=== PATIENT | female | born 1940 | race Caucasian/White ===

== ENCOUNTER 2019-03-04 21:46 | Inpatient (IN) | payer MEDICARE, BC ==
[2019-03-04] MEDS ORDERED: JANUMET 50-1,01 EAC1 (21:56)
[2019-03-04] MEDS ORDERED: [UNRECOGNIZED DRUG - OTHER] (21:58)
[2019-03-04 22:38] LABS: BASOPHILS 0.1 % (0-2); EOSINOPHILS 0 % (0-7); HEMATOCRIT 46.6 % (36.0-48.0); HEMOGLOBIN 16.2 g/dL (12-16); IMMATURE GRANULOCYTES 0.5 % (0-5); LYMPHOCYTES 6.7 % (15-50); MCH 29.9 pg (26.0-34.0); MCHC 34.8 g/dL (31.0-37.0); MEAN PLATELET VOLUME 10.4 fL (7.4-10.4); MONOCYTES 13.1 % (2-11); NEUTROPHILS 79.6 % (40-80); PLATELET COUNT 248 10x3/uL (130-400); RBC 5.42 10x6/uL (4.00-5.40); RDW 13.3 % (11.5-14.5); WBC 11.8 10x3/uL (4.8-10.8)
[2019-03-04 22:53] LABS: ALBUMIN 2.9 g/dL (3.4-5.0); ANION GAP 24.8 mmol/L (8-16); BILIRUBIN - TOTAL 0.45 mg/dL (0.2-1.3); CALCIUM 10.1 mg/dL (8.5-10.1); CREATININE - SERUM 1.2 mg/dL (0.6-1.3); POTASSIUM - SERUM 3.8 mmol/L (3.5-5.1); PROTEIN - SERUM 7.1 g/dL (6.4-8.2)
[2019-03-04 23:41] LABS: CKMB 137.1 U/L (0.0-3.6)
[2019-03-04 23:45] LABS: CREATINE KINASE 1430 UL (21-215)
[2019-03-04 23:48] LABS: TROPONIN-I 107.683 ng/mL (0.000-0.060)
--- NOTE | 2019-03-05 01:25 | NUR ---
PT WAS ADMITTED TO ROOM 2113 FROM ER AT 0050. AT THE SAME TIME, LAB CALLED WITH CRITICAL HIGH TROPONIN OF 107. JOSLYN FROM ER RELAYED ELEVATED TROPONIN LEVEL TO ER/DR SOSA AND PAGED DR FAUSTIN. NO NEW ORDERS PER [facility] OR [facility]. PT IS ACCOMPANIED BY FAMILY X 5. SHE IS ALERT BUT NONVERBAL. SHE IS MOVING HER ARMS, PICKING AT THINGS IN THE AIR. FLAT AFFECT. FAMILY STATES SHE NORMALLY LIVES ALONE, WITH FAMILY THAT CHECKS HER TWICE DAILY AND TODAY THEY FOUND HER ON THE FLOOR AT 1600, NO LONGER SPEAKING. TELEMETRY STARTED SHOWING ST 100-120. PT WITH ANXIETY. CALL TO DR FAUSTIN. REVIEWED CURRENT TROPONIN LEVEL OF 107 AND REQUESTED MED FOR ANXIETY/AGITATION. ALSO CLARIFIED THAT NEXT TROPONIN LEVEL IS SET FOR 0500. DR FAUSTIN INSTRUCTED TO MOVE NEXT TROPONIN LEVEL TO 0700. ADMINISTERED 1MG SIVP OF ATIVAN. GRANDDAUGHTER AT BEDSIDE.
[2019-03-05 02:04] VITALS: BP 135/76; BMI 23.2
[2019-03-05 04:25] VITALS: BP 139/72
--- NOTE | 2019-03-05 07:30 | NUR ---
RECEIVED PT IN BED RESPONDS TO PAINFUL STIMULI SNORING RESP UNLABORED O2 ON 2 LPM NC TELEMETRY SR RATE 137 WILL CONTINUE TO MONITOR GRANDDAUGHTER AT BEDSIDE
[2019-03-05 08:04] LABS: CKMB 98.6 U/L (0.0-3.6)
[2019-03-05 08:05] LABS: CREATINE KINASE 1185 UL (21-215)
[2019-03-05 08:53] VITALS: BP 116/68
--- NOTE | 2019-03-05 10:07 | NUR ---
PT UNABLE TO TAKE PO MEDS NEW ORDERS RECEIVED TO GIVEN IV MEDS WILL CONTINUE TO MONITOR
[2019-03-05 12:07] VITALS: BMI 23.1
[2019-03-05 13:11] VITALS: BP 131/71
[2019-03-05 13:15] LABS: CKMB 51.9 U/L (0.0-3.6); CREATINE KINASE 801 UL (21-215)
[2019-03-05 13:16] LABS: TROPONIN-I 50.686 ng/mL (0.000-0.060)
[2019-03-05 16:45] VITALS: BP 142/81
--- NOTE | 2019-03-05 19:11 | NUR ---
RECIEVED LAYING IN BED WITH HOB ELEVATED. O2 @ 2 LITERS PER N/C. RESP EVEN AND UNLABORED. UNABLE TO AROUSE USING STERNAL RUB. GRAND DAUGHTER AT BEDSIDE AND STAES " SHE'S BEEN LIKE THAT ALL DAY". NO S/S OF DISTRESS OBSERVED. IV TO RIGHT FA SL AND IV TO LEFT HAND SL..
--- NOTE | 2019-03-05 19:42 | NUR ---
CONTINUES TO BE UNRESPONSIVE. HR 145. LOPRRESSOR GIVEN AND HR 74 AT THIS TIME.
[2019-03-05 20:00] VITALS: BP 155/87
[2019-03-06] VITALS (19 sets, daily range): BP systolic 68–128; BP diastolic 50–90
[2019-03-06 04:09] LABS: BASOPHILS 0.1 % (0-2); EOSINOPHILS 0 % (0-7); HEMATOCRIT 48.9 % (36.0-48.0); HEMOGLOBIN 16.7 g/dL (12-16); IMMATURE GRANULOCYTES 0.3 % (0-5); LYMPHOCYTES 9.8 % (15-50); MCH 30.1 pg (26.0-34.0); MCHC 34.2 g/dL (31.0-37.0); MEAN PLATELET VOLUME 10.6 fL (7.4-10.4); MONOCYTES 12.8 % (2-11); RBC 5.54 10x6/uL (4.00-5.40); RDW 13.7 % (11.5-14.5); WBC 14.3 10x3/uL (4.8-10.8)
[2019-03-06 04:12] LABS: MCV 88.3 fL (80.0-100.0); PLATELET COUNT 347 10x3/uL (130-400)
[2019-03-06 04:23] LABS: CALCIUM 10.5 mg/dL (8.5-10.1)
[2019-03-06 04:25] LABS: ANION GAP 20.9 mmol/L (8-16); CARBON DIOXIDE 19.8 mmol/L (21.0-32.0); CREATININE - SERUM 1.7 mg/dL (0.6-1.3); POTASSIUM - SERUM 4.7 mmol/L (3.5-5.1)
[2019-03-06 05:06] LABS: APPEARANCE CLOUDY (CLEAR); BILIRUBIN NEGATIVE (NEGATIVE); COLOR YELLOW (YELLOW); GLUCOSE NEGATIVE (NEGATIVE); KETONE SMALL mg/dL (NEGATIVE); NITRITE NEGATIVE (NEGATIVE); PROTEIN 1+ mg/dL (NEGATIVE); SPECIFIC GRAVITY 1.015 (1.005-1.020); UROBILINOGEN NORMAL (NORMAL)
[2019-03-06 05:07] LABS: BACTERIA MANY /hpf (NONE SEEN); EPITHELIAL CELLS NSEEN /hpf (0-5); WHITE CELLS - URINE >50 /hpf (0-5)
--- NOTE | 2019-03-06 05:58 | NUR ---
SPOKE WITH DR CORDERO, ORDERS RECIEVED.
[2019-03-06 06:05] LABS: CKMB 9.2 U/L (0.0-3.6)
[2019-03-06 06:07] LABS: CREATINE KINASE 344 UL (21-215); TROPONIN-I 27.527 ng/mL (0.000-0.060)
--- NOTE | 2019-03-06 06:17 | NUR ---
0350 RAPID, SEE REPORT. 0406 DR LO PAGED. 0427 DR LO PAGED. 3755 DR LO CALLED BACK, ORDERS RECIEVED. 0530 PT ARRIVED TO ICU. LOWER EXTREMITY MOTTLING NOTED. LUNGS WITH CRACKLES/RHONCHI THROUGH, AND LOWER LOBES DVERY DIMINISHED. RR VERY SHALLOW. ON 6L HIGH FLOW NC. BP 124/85, HR 139, RR 44, SPO2 96%, TEMP 99. [address] CORDERO, NOTIFIED OF CONSULT AND GAVE PATIENT STATUS UPDATE. ORDERS RECIEVED.
--- NOTE | 2019-03-06 06:33 | NUR ---
PER DR GIL OVIEDO HIGH ORDER BILATERAL LOWER EXTREMITY DOPPLER STUDIES.
--- NOTE | 2019-03-06 07:46 | NUR ---
NURSE AT BEDSIDE, SEE FLOW SHEET FOR ASSESSMENT, RT AT BEDSIDE.
--- NOTE | 2019-03-06 08:12 | NUR ---
PAGED FOR FURTHER INSTRUCTIONS R/T ?BIPAP ALSO ?DNR.
--- NOTE | 2019-03-06 08:15 | NUR ---
NURSE SPOKE WITH ROYER, SHE STATES THE FAMILY DOES NOT WISH TO PREFORM ANY HEROIC MEASURES, BUT TO CONTINUE TREATMENT OF CURRENT CONDITIONS. DR. SEXTON.
--- NOTE | 2019-03-06 09:37 | NUR ---
HOWARD 3, CALLED [facility], THEY REFUSE TO TAKE CALL DUE TO FACT PATIENT NOT INTUBATED, OR .
--- NOTE | 2019-03-06 19:00 | NUR ---
REPORT RECEIVED, CARE ASSUMED. PT IS LAYING IN BED ON BIPAP AT THIS TIME. UNRESPONSIVE TO STIMULI. PT REPOSITIONED FOR COMFORT. NO SIGNS OF ACUTE DISTRESS NOTED AT THIS TIME. WILL CONTINUE TO MONITOR.
--- NOTE | 2019-03-06 21:00 | NUR ---
PT IS RESTING IN BED ON THE BIPAP AT THIS TIME. STILL UNRESPONSIVE AT THIS TIME. FAMILY IS AT BEDSIDE. NO SIGNS OF ACUTE DISTRESS NOTED. WILL CONTINUE TO MONITOR.
--- NOTE | 2019-03-06 23:00 | NUR ---
REASSESSMENT COMPLETED, SEE FLOWSHEET FOR DETAILS. PT REPOSITIONED FOR COMFORT. ORAL CARE PERFORMED. PT IS RESTING IN BED WITH BIPAP ON, NO RESPONDING TO STIMULI. NO SIGNS OF ACUTE DISTRESS NOTED AT THIS TIME. WILL CONTINUE TO MONITOR.
[2019-03-07] VITALS (24 sets, daily range): BP systolic 84–124; BP diastolic 55–82
--- NOTE | 2019-03-07 01:00 | NUR ---
PT IS RESTING IN BED ON THE BIPAP, STILL UNRESPONSIVE AT THIS TIME. NO ACUTE CHANGES NOTED. NO SIGNS OF ACUTE DISTRESS. WILL CONTINUE TO MONITOR.
--- NOTE | 2019-03-07 03:00 | NUR ---
REASSESSMENT COMPLETED, SEE FLOWSHEET FOR DETAILS. PT IS LAYING IN BED ON THE BIPAP AT THIS TIME, STILL UNRESPONSIVE. NO CHANGES NOTED AT THIS TIME. NO SIGNS OF ACUTE DISTRESS. WILL CONTINUE TO MONITOR.
[2019-03-07 03:42] LABS: BASOPHILS 0.1 % (0-2); EOSINOPHILS 0 % (0-7); HEMATOCRIT 44.8 % (36.0-48.0); HEMOGLOBIN 14.9 g/dL (12-16); LYMPHOCYTES 11.1 % (15-50); MCH 30.1 pg (26.0-34.0); MCHC 33.3 g/dL (31.0-37.0); MCV 90.5 fL (80.0-100.0); MEAN PLATELET VOLUME 11.2 fL (7.4-10.4); MONOCYTES 8.1 % (2-11); NEUTROPHILS 79.7 % (40-80); PLATELET COUNT 289 10x3/uL (130-400); RBC 4.95 10x6/uL (4.00-5.40); RDW 14.2 % (11.5-14.5); WBC 13.7 10x3/uL (4.8-10.8)
[2019-03-07 03:53] LABS: ANION GAP 16.5 mmol/L (8-16); BILIRUBIN - TOTAL 0.51 mg/dL (0.2-1.3); CALCIUM 9.5 mg/dL (8.5-10.1); CARBON DIOXIDE 23.3 mmol/L (21.0-32.0); MAGNESIUM - SERUM 2.2 mg/dL (1.8-2.4); PHOSPHOROUS 4.4 mg/dL (2.5-4.9); POTASSIUM - SERUM 4.8 mmol/L (3.5-5.1); PROTEIN - SERUM 6.6 g/dL (6.4-8.2)
[2019-03-07 03:54] LABS: CREATININE - SERUM 2.7 mg/dL (0.6-1.3)
--- NOTE | 2019-03-07 04:11 | NUR ---
CRITICAL LAB RESULT RECEIVED, CALLED DR GRAHAM REGARDING CRITICAL GLUCOSE LEVEL. ORDERS RECEIVED.
--- NOTE | 2019-03-07 05:15 | NUR ---
RECHECKED GLUCOSE LEVEL, STILL CRITICAL RESULT. CALLED DR GRAHAM, RESULTS RECEIVED.
--- NOTE | 2019-03-07 07:30 | NUR ---
REPORT RECIEVED, SHIFT ASSESSMENT COMPLETE, PT IS UNRESPONSIVE ON BIPAP, ALL PPP, VSS, WILL CON'T TO MONITOR
--- NOTE | 2019-03-07 08:50 | NUR ---
Nutrition follow-up: Pt continues to be unresponsive NPO BIPAP Labs reviewed; glucose > 350 mg/dl Wt: 121# RDN will continue to monitor patients progress.
--- NOTE | 2019-03-07 09:30 | NUR ---
FAMILY AT BEDSIDE, UPDATE GIVEN, WILL CON'T TO MONITOR
--- NOTE | 2019-03-07 10:07 | CN ---
PATIENT NAME:RALPH LANDAVERDE MEDICAL RECORD: [id number] : 42 LOCATION:[id number] ADMIT DATE: 03/04/19 ACCOUNT: [id number] CONSULTING PHYSICIAN: VIRY FAUSTIN MD REFERRING PHYSICIAN: KEVAN ESCOTO MD DATE OF CONSULTATION: 03/04/2019 HISTORY OF PRESENT ILLNESS: A 78-year-old female with no known history of coronary artery disease. History is obtained from family member, has a history of diabetes mellitus, history of dementia, has been having good days over the past week or so, last seen by family Thursday. Thursday was markedly disoriented, confused, was taken to the [facility] ER, was found to be in DKA as well as hypernatremic. Also noted to have elevated troponin consistent with type 1 versus type 2, UT. We are asked to see her concerning her cardiovascular status. PAST MEDICAL HISTORY: 1. Dementia. 2. Diabetes mellitus. ALLERGIES: None known. MEDICATIONS: At home include Janumet 50 mg/1 gram b.i.d., unknown antihypertensive. SOCIAL HISTORY: With dementia, requires assistance with assisted living. She is a nonsmoker. Appears to have good family support. REVIEW OF SYSTEMS: Unobtainable. PHYSICAL EXAMINATION: GENERAL: Elderly female in no acute distress. VITAL SIGNS: Blood pressure 113/72, pulse 102. HEENT: Normocephalic, atraumatic. NECK: No bruits are noted. HEART: Regular, II/ systolic ejection murmur. Mildly tachycardic. LUNGS: Fair air excursion. ABDOMEN: Soft, nontender. EXTREMITIES: Pulses 1+ with no edema. DIAGNOSTIC DATA: ECG shows nonspecific ST-T changes. IMPRESSION: Type 1 versus type 2 versus combination of Non-ST elevation myocardial infarction. Given marked electrolyte imbalances, etc., we will just begin medical management, angiography at a later date. X-ray has been ordered and again antiplatelets as well as beta blockade. TRANSINT:[id number] Voice Confirmation ID: [id number] DOCUMENT ID: [id number] CONSULT REPORT [id number] RALPH LANDAVERDE VIRY FAUSTIN MD at 1007 CC: [id number] DICTATION DATE: 03/05/19 0827 HOT MOLDER: 03/05/19 1257 ADM IN [facility] [address] [id number]
--- NOTE | 2019-03-07 10:07 | EC ---
PATIENT:RALPH LANDAVERDE DATE OF SERVICE: 03/04/19 SEX: F MEDICAL RECORD: [id number] DATE OF : 42 LOCATION:[facility] AGE OF PATIENT: 78 ADMISSION DATE: 03/04/19 REFERRING PHYSICIAN: INTERPRETING PHYSICIAN: VIRY FAUSTIN MD ECHOCARDIOGRAM REPORT ECHO CHARGES 4 ECHO COMPLETE Date: 03/05/19 CLINICAL DIAGNOSIS: NONSTE WA ECHOCARDIOGRAPHIC MEASUREMENTS (adult normal given) AC root (d.<3.7cm) 4.0 cm LV Septum d (<1.2 cm> 1.1 cm Valve Excursion 1.7 cm LV Septum (systole) 1.3 cm Left Atria (s.<4.0cm> 2.7 cm LVPW d(<1.2cm) 1.4 cm RV (d.<2.3cm) 2.8 cm LVPW (sytole) 1.5 cm LV diastole(<5.6CM) 5.5 cm MV E-F(>70mm/sec) cm LV systole 4.7 cm LVOT Diameter 1.9 cm MV exc.(>10mm) 1.3 cm Est.ejection fraction (50-75%) % DOPPLER: LVIT cm/sec A cm/sec E cm/sec LA cm/sec RVSP 20 mmHg LVOT 115 cm/sec AOP1/2T 380 m/s Asc. Ao 144 cm/sec RVOT 87 cm/sec RA cm/sec PA 135 cm/sec AV Gradient Peak 8.29 mmHg AV Mean 4.94 mmHg AV Area 2.7 cm MV Gradient Peak 6.10 mmHg MV Mean 2.17 mmHg MV Area cm COMMENTS: Record Center Coordinator: 2 JEREMIAS MUÑOZ Extruder Operator Vertical: 3 Dr. Nagy TAPE# PACS Pericardial Effusion N DATE OF SERVICE: Adequate 2-D echo, color-flow and spectral Doppler, and M-mode. LVH is present. LV internal dimensions are normal. LV is globally hypokinetic with reduced EF. Estimated EF is 30% to 35%. There is an echo dense structure noted on the LV septum. This density could be consistent with either LV thrombus or possibly even LV myxoma. Aortic valve is tricuspid. No evidence of stenosis by Doppler interrogation. Left atrium is normal at 3.7 cm. Mitral valve shows no prolapse. Trace MR. Right-sided chambers are grossly normal. ECHOCARDIOGRAM REPORT [id number] SAIMARALPH Wu Serna TR. TRANSINT:[id number] Voice Confirmation ID: [id number] DOCUMENT ID: [id number] VIRY FAUSTIN MD at 1007 CC: [id number] DICTATION DATE: 03/06/1949 FINISHING MANAGER: 03/06/19 1637 ADM IN [place] [id number] [place] [address]
--- NOTE | 2019-03-07 11:30 | NUR ---
REASSESSMENT COMPLETE, NO CHANGES NOTED, REPOSITIONED FOR COMFORT,
--- NOTE | 2019-03-07 12:30 | NUR ---
BIPAP REMOVED AT THIS TIME, PT NOW ON 5L HF NC, O2 SAT IS 97%
--- NOTE | 2019-03-07 13:05 | NUR ---
FAMILY AT BEDSIDE, UPDATE GIVEN BY DR. CORDERO
--- NOTE | 2019-03-07 13:30 | NUR ---
INDIRA COLEMAN AT BEDSIDE, LEFT PICC PLACED, PT TOLERATED WELL
--- NOTE | 2019-03-07 15:22 | NUR ---
REASSESSMENT COMPLETE, NO CHANGES NOTED, WILL CON'T TO MONITOR
--- NOTE | 2019-03-07 15:55 | NUR ---
PT IN AFIB RVR AT 215, DR. CORDERO AT BEDSIDE, NEW ORDERS RECIEVED, DR. WILKERSON UPDATED,
--- NOTE | 2019-03-07 17:00 | NUR ---
FAMILY AT BEDSIDE, UPDATE GIVEN
--- NOTE | 2019-03-07 17:45 | NUR ---
PT STILL IN AFIB RVR, DR. CAMPO NOTIFIED, NEW ORDERS RECIEVED
--- NOTE | 2019-03-07 18:18 | MORECARE ---
CASE MANAGEMENT DISCHARGE SUMMARY PATIENT: RALPH LANDAVERDE UNIT: [id number] ADM DATE: 03/04/19 AGE: 78 : 41 SEX: F ROOM/BED: D.2306 AUTHOR: KIRIT REES PHYSICIAN: REFERRING PHYSICIAN: KEVAN ESCOTO MD DATE OF SERVICE: 03/07/19 Discharge Plan Patient Name: RALPH LANDAVERDE [facility] [facility] 1940 Planned Disposition: Anticipated Discharge Date: Discharge Date: Expected LOS: Initial Reviewer: [email or web address] Initial Review Date: 03/07/2019 Generated: 03/07/19 7:18 pm DCPIA - Discharge Planning Initial Assessment Updated by [email or web address]: Chapis Katz on 03/07/19 6:16 pm * Is the patient Alert and Oriented? No * How many steps to enter\exit or inside your home? * PCP [facility] [place] * Pharmacy [facility] * Preadmission Environment Home Alone * ADLs Independent * Equipment Walker Wheelchair * List name and contact numbers for known caregivers / representatives who currently or will assist patient after discharge: Luba Velasquez - Grand-daughter (POA) [phone] Jazz Rodríguez - Daughter- [phone] * Verbal permission to speak to the caregivers and representatives has been obtained from the patient. N/A * Community resources currently utilized None * Additional services required to return to the preadmission environment? No * Can the patient safely return to the preadmission environment? Yes * Has this patient been hospitalized within the prior 30 days at any hospital? No Patient Name: RALPH LANDAVERDE Page [phone] at 1818 All edits/amendments must be made on the electronic document DICTATION DATE: 03/07/191817 CORRECTIONAL TREATMENT SPECIALIST: BINDU 03/07/191817 RPT#: [id number] DC DATE: STATUS: ADM IN [facility] [address] [place] [address] END OF REPORT
--- NOTE | 2019-03-07 18:26 | MORECARE ---
CASE MANAGEMENT DISCHARGE SUMMARY PATIENT: RALPH LANDAVERDE UNIT: [id number] ADM DATE: 03/04/19 AGE: 78 : 41 SEX: F ROOM/BED: D.2306 AUTHOR: CABRERA,DOC PHYSICIAN: REFERRING PHYSICIAN: KEVAN ESCOTO MD DATE OF SERVICE: 03/07/19 Discharge Plan Patient Name: RALPH LANDAVERDE Facility: [facility]:[place] : 1940 Planned Disposition: Anticipated Discharge Date: Discharge Date: Expected LOS: Initial Reviewer: [email or web address] Initial Review Date: 03/07/2019 Generated: 03/07/19 7:25 pm Comments DCP- Discharge Planning Updated by [id number]: Chapis Katz on 03/07/19 5:[address] Patient Name: RALPH LANDAVERDE Admission Status: ER Accout number: [id number] Admission Date: 03-04-2019 : 1940 Admission Diagnosis:SEPSIS, UNSPECIFIED ORGANISM Attending: BEBE ESCOTO Current LOS: 3 Anticipated DC Date: Planned Disposition: Primary Insurance: MEDICARE A & B Discharge Planning Comments: CM met with daughter (Qi) and grand-daughter (Luba) at patient's bedside after explaining CM role and obtaining verbal consent. Patient is currently non-responsive. Patient lives at home alone and was independent of all ADL's. Luba would come by and check on patient often. CM discussed availability / needs of home health and medical equipment. Uncertain of d/c needs at this time. CM will continue to follow and assist as needed with discharge planning / needs. Internal Medicine Doctor: Chapis Katz DCPIA - Discharge Planning Initial Assessment Updated by [id number]: Chapis Katz on 03/07/19 6:16 pm * Is the patient Alert and Oriented? No * How many steps to enter\exit or inside your home? * PCP [facility] [place] * Pharmacy [facility] * Preadmission Environment Home Alone * ADLs Independent * Equipment Walker Wheelchair * List name and contact numbers for known caregivers / representatives who currently or will assist patient after discharge: Luba Velasquez - Grand-daughter (POA) [phone] Jazz Rodríguez - Daughter- [phone] * Verbal permission to speak to the caregivers and representatives has been obtained from the patient. N/A * Community resources currently utilized None * Additional services required to return to the preadmission environment? No * Can the patient safely return to the preadmission environment? Yes * Has this patient been hospitalized within the prior 30 days at any hospital? No Last DP export: 03/07/19 5:18 p Patient Name: RALPH LANDAVERDE Page [id number] at 1826 All edits/amendments must be made on the electronic document DICTATION DATE: 03/07/191824 CELLULAR EQUIPMENT REPAIRER: BINDU 03/07/191824 RPT#: [id number] DC DATE: STATUS: ADM [facility] [address] [place] [address] END OF REPORT
--- NOTE | 2019-03-07 19:00 | NUR ---
REPORT RECEIVED, CARE ASSUMED. PT IS RESTING IN BED ON THE BIPAP AT THIS TIME. PT IS STILL IN AFIB RVR AT THIS TIME, DR CAMPO NOTIFIED, ORDERS RECEIVED. INITIAL ASSESSMENT COMPLETED, SEE FLOWSHEET FOR DETAILS. PT REPOSITIONED FOR COMFORT. WILL CONTINUE TO MONITOR.
--- NOTE | 2019-03-07 21:00 | NUR ---
PT IS RESTING IN BED ON BIPAP AT THIS TIME. HR SEEMS TO BE CONTROLLED AT THIS TIME. PT REPOSITIONED FOR COMFORT. NO SIGNS OF ACUTE DISTRESS. WILL CONTINUE TO MONITOR.
--- NOTE | 2019-03-07 23:00 | NUR ---
REASSESSMENT COMPLETED, SEE FLOWSHEET FOR DETAILS. PT IS RESTING IN BED ON BIPAP WITH EYES CLOSED. NO ACUTE CHANGES NOTED. NO SIGNS OF ACUTE DISTRESS. PT REPOSITIONED FOR COMFORT. WILL CONTINUE TO MONITOR.
[2019-03-08] VITALS (24 sets, daily range): BP systolic 99–136; BP diastolic 8–68
--- NOTE | 2019-03-08 01:00 | NUR ---
PT IS RESTING IN BED WEARING BIPAP. PT CONTINUES TO BE UNRESPONSIVE. PT REPOSITIONED FOR COMFORT. NO SIGNS OF ACUTE DISTRESS NOTED. WILL CONTINUE TO MONITOR.
--- NOTE | 2019-03-08 03:00 | NUR ---
REASSESSMENT COMPLETED, SEE FLOWSHEET FOR DETAILS. PT IS IN BED ON BIPAP STILL UNRESPONSIVE. PT REPOSITIONED FOR COMFORT. NO SIGNS OF ACUTE DISTRESS. WILL CONTINUE TO MONITOR.
[2019-03-08 04:20] LABS: BASOPHILS 0.1 % (0-2); EOSINOPHILS 0 % (0-7); HEMATOCRIT 38.2 % (36.0-48.0); HEMOGLOBIN 12.6 g/dL (12-16); IMMATURE GRANULOCYTES 0.9 % (0-5); LYMPHOCYTES 6.5 % (15-50); MCH 29.9 pg (26.0-34.0); MCV 90.5 fL (80.0-100.0); MONOCYTES 5.6 % (2-11); NEUTROPHILS 86.9 % (40-80); PLATELET COUNT 289 10x3/uL (130-400); RBC 4.22 10x6/uL (4.00-5.40); RDW 13.9 % (11.5-14.5); WBC 17.2 10x3/uL (4.8-10.8)
[2019-03-08 04:33] LABS: ALBUMIN 1.6 g/dL (3.4-5.0); ANION GAP 15.1 mmol/L (8-16); BILIRUBIN - TOTAL 0.38 mg/dL (0.2-1.3); CALCIUM 8.7 mg/dL (8.5-10.1); CARBON DIOXIDE 20.6 mmol/L (21.0-32.0); PHOSPHOROUS 3.5 mg/dL (2.5-4.9); POTASSIUM - SERUM 4.7 mmol/L (3.5-5.1); VANCOMYCIN - RANDOM 17.1 ug/mL (10.0-20.0)
[2019-03-08 04:51] LABS: CREATININE - SERUM 1.8 mg/dL (0.6-1.3); PROTEIN - SERUM 4.8 g/dL (6.4-8.2)
--- NOTE | 2019-03-08 05:00 | NUR ---
PT IS LAYING IN BED WITH BIPAP ON AT THIS TIME. PT WAS GIVEN A CHG BATH AND LINEN AND GOWN WAS CHANGED. PT REPOSITIONED FOR COMFORT. NO SIGNS OF ACUTE DISTRESS NOTED AT THIS TIME. VSS. WILL CONTINUE TO MOITOR.
--- NOTE | 2019-03-08 07:15 | NUR ---
REPORT RECIEVED, SHIFT ASSESSMENT COMPLETE, PT IS UNRESPONSIVE, ON 30% BIPAP WITH 100% O2 SAT. EDEMA NOTED IN UPPER EXTREMETIES, ALL PPP, VSS, WILL CON'T TO MONITOR
--- NOTE | 2019-03-08 09:10 | NUR ---
COMPLETE BATH AND LINEN CHANGE, PT TOLERATED WELL
--- NOTE | 2019-03-08 11:19 | NUR ---
DR. CORDERO AT BEDSIDE, UPDATE GIVEN
--- NOTE | 2019-03-08 13:15 | NUR ---
DR. GRAHAM AT BEDSIDE, UPDATE GIVEN TO FAMILY
--- NOTE | 2019-03-08 14:55 | NUR ---
PT TO RAD FOR VQ SCAN VIA BED
--- NOTE | 2019-03-08 15:05 | NUR ---
PT BACK FROM RAD, HOOKED TO MONITORS
--- NOTE | 2019-03-08 15:17 | NUR ---
UPDATE GIVEN TO CHANTALE OVER PHONE,
--- NOTE | 2019-03-08 17:10 | NUR ---
PT RESTING COMFORTABLY VSS NO NEW CHANGES. REPOSITIONED ON L SIDE WILL CONTINUE TO MONITOR
[2019-03-09] VITALS (8 sets, daily range): BP systolic 123–144; BP diastolic 58–68
[2019-03-09 05:42] LABS: BASOPHILS 0.1 % (0-2); EOSINOPHILS 0.7 % (0-7); HEMATOCRIT 35.9 % (36.0-48.0); HEMOGLOBIN 11.8 g/dL (12-16); IMMATURE GRANULOCYTES 1.1 % (0-5); LYMPHOCYTES 6.7 % (15-50); MCH 29.2 pg (26.0-34.0); MCHC 32.9 g/dL (31.0-37.0); MCV 88.9 fL (80.0-100.0); MEAN PLATELET VOLUME 10.5 fL (7.4-10.4); MONOCYTES 7.7 % (2-11); NEUTROPHILS 83.7 % (40-80); PLATELET COUNT 242 10x3/uL (130-400); RBC 4.04 10x6/uL (4.00-5.40); RDW 13.8 % (11.5-14.5); WBC 15.9 10x3/uL (4.8-10.8)
[2019-03-09 06:16] LABS: ALBUMIN 1.5 g/dL (3.4-5.0); ANION GAP 9.4 mmol/L (8-16); BILIRUBIN - TOTAL 0.34 mg/dL (0.2-1.3); CALCIUM 9.2 mg/dL (8.5-10.1); CARBON DIOXIDE 25.9 mmol/L (21.0-32.0); CREATININE - SERUM 1.2 mg/dL (0.6-1.3); MAGNESIUM - SERUM 2.2 mg/dL (1.8-2.4); PHOSPHOROUS 2.6 mg/dL (2.5-4.9); POTASSIUM - SERUM 4.3 mmol/L (3.5-5.1); PROTEIN - SERUM 5.3 g/dL (6.4-8.2); VANCOMYCIN - RANDOM 20.5 ug/mL (10.0-20.0)
[2019-03-09 06:17] LABS: TROPONIN-I 9.526 ng/mL (0.000-0.060)
--- NOTE | 2019-03-09 07:08 | NUR ---
REPORT RECIEVED, SHIFT ASSESSMENT COMPLETE, PT IS UNRESPONSIVE, ON 4L HF NC WITH 99% O2 SAT, CRACKLES HEARD IN B/L UPPER LOBES, ALL PPP, VSS, WILL CON'T TO MONITOR
--- NOTE | 2019-03-09 07:25 | NUR ---
PT TO MRI AT THIS TIME
--- NOTE | 2019-03-09 07:55 | NUR ---
PT BACK FROM MRI, HOOOKED TO MONITORS, TOLERATED WELL
--- NOTE | 2019-03-09 09:20 | NUR ---
FAMILY AT BEDSIDE, UPDATE GIVEN
--- NOTE | 2019-03-09 09:38 | NUR ---
NUTRITION F/U PT REMAINS UNRESPONSIVE PER NOTES. PROCALAMINE AT 75 CC/HR AND NS AT 75 CC/HR. RECOMMEND CHANGING TO TUBE FEEDS WHEN MEDICALLY FEASIBLE. RD FOLLOWING
--- NOTE | 2019-03-09 10:20 | NUR ---
PT TO AND FROM CT AT THIS TIME, PT TOLERATED WELL
--- NOTE | 2019-03-09 11:12 | NUR ---
REASSESSMENT COMPLETE, NO CHANGES NOTED, DR. CORDERO AT BEDSIDE, UPDATE GIVEN
--- NOTE | 2019-03-09 11:50 | NUR ---
DR. GRAHAM AT BEDSIDE, UPDATE GIVEN, PT BEING TRANSFERRED TO [facility] IN [place],
--- NOTE | 2019-03-09 12:00 | NUR ---
UPDATE GIVEN TO THE TRANSFER CENTER AT THIS TIME,
--- NOTE | 2019-03-09 12:15 | NUR ---
FAMILY AT BEDSIDE, UPDATE GIVEN ABOUT POC
--- NOTE | 2019-03-09 13:37 | NUR ---
TRANSFER CENTER CALLED WITH A BED FOR PT, WILL CALL REPORT AND UPDATE FAMILY
--- NOTE | 2019-03-09 13:50 | NUR ---
REPORT CALLED TO [facility]
--- NOTE | 2019-03-09 14:26 | NUR ---
SURVIVAL FLIGHT HERE FOR PT, PT PLACED ON STRETCHER, FAMILY AT BEDSIDE,
--- NOTE | 2019-03-09 16:11 | MORECARE ---
CASE MANAGEMENT DISCHARGE SUMMARY PATIENT: RALPH LANDAVERDE UNIT: [id number] ADM DATE: 03/04/19 AGE: 78 : 41 SEX: F ROOM/BED: D.2306 AUTHOR: CABRERA,DOC PHYSICIAN: REFERRING PHYSICIAN: KEVAN ESCOTO MD DATE OF SERVICE: 03/09/19 Discharge Plan Patient Name: RALPH LANDAVERDE Facility: [facility]:[place] : 1940 Planned Disposition: Anticipated Discharge Date: Discharge Date: 03/09/2019 Expected LOS: Initial Reviewer: [email or web address] Initial Review Date: 03/07/2019 Generated: 03/09/19 5:11 pm DCP- Discharge Planning Updated by [id number]: Chapis Katz on 03/07/19 5:[address] Patient Name: RALPH LANDAVERDE Admission Status: ER Accout number: [id number] Admission Date: 03-04-2019 : 1940 Admission Diagnosis:SEPSIS, UNSPECIFIED ORGANISM Attending: BEBE ESCOTO Current LOS: 3 Anticipated DC Date: Planned Disposition: Primary Insurance: MEDICARE A & B Discharge Planning Comments: CM met with daughter (Qi) and grand-daughter (Luba) at patient's bedside after explaining CM role and obtaining verbal consent. Patient is currently non-responsive. Patient lives at home alone and was independent of all ADL's. Luba would come by and check on patient often. CM discussed availability / needs of home health and medical equipment. Uncertain of d/c needs at this time. CM will continue to follow and assist as needed with discharge planning / needs. Laboratory Phlebotomist: Chapis Katz DCPIA - Discharge Planning Initial Assessment Updated by [id number]: Chapis Katz on 03/07/19 6:16 pm * Is the patient Alert and Oriented? No * How many steps to enter\exit or inside your home? * PCP [facility] [place] * Pharm[facility] * Preadmission Environment Home Alone * ADLs Independent * Equipment Walker Wheelchair * List name and contact numbers for known caregivers / representatives who currently or will assist patient after discharge: Luba Velasquez - Grand-daughter (POA) [phone] Jazz Rodríguez - Daughter- [phone] * Verbal permission to speak to the caregivers and representatives has been obtained from the patient. N/A * Community resources currently utilized None * Additional services required to return to the preadmission environment? No * Can the patient safely return to the preadmission environment? Yes * Has this patient been hospitalized within the prior 30 days at any hospital? No Last DP export: 03/07/19 5:26 p Patient Name: RALPH LANDAVERDE Page [phone] at 1611 All edits/amendments must be made on the electronic document DICTATION DATE: 03/09/191610 PUBLIC HEALTH CLINICAL NURSE SPECIALIST: BINDU 03/09/191610 RPT#: [id number] DC DATE:03/09/19 STATUS: DIS IN [facility] [address] [place] [address] END OF REPORT
[2019-03-17 18:07] LABS: AEROBE ID Final report (()); RESULT 1 Aerococcus urinae (())
== END 2019-03-09 14:28 | disposition short-term general hospital (02) | DRG 280 ==
LOC: D.ER 21:46 → D.M2 22:53 → D.ICU 22:53
PROVIDERS: Emergency Medicine; Family Medicine; Internal Medicine Pulmonary Disease; ADMIT Emergency Medicine; ATTEND Emergency Medicine
PROC: 05HY33Z Insertion of Infusion Device into Upper Vein, Percutaneous Approach (ICD-10-PCS; principal; 2019-03-07)
DX: I21.4 Non-ST elevation (NSTEMI) myocardial infarction (principal); I63.89 Other cerebral infarction; J96.01 Acute respiratory failure with hypoxia; G93.41 Metabolic encephalopathy; E11.10 Type 2 diabetes mellitus with ketoacidosis without coma; A41.9 Sepsis, unspecified organism; E87.0 Hyperosmolality and hypernatremia; N17.9 Acute kidney failure, unspecified; N39.0 Urinary tract infection, site not specified; E87.2 Acidosis; Z66 Do not resuscitate; E11.21 Type 2 diabetes mellitus with diabetic nephropathy; E11.40 Type 2 diabetes mellitus with diabetic neuropathy, unspecified; Z79.4 Long term (current) use of insulin; M19.90 Unspecified osteoarthritis, unspecified site; E83.52 Hypercalcemia; E86.0 Dehydration; G30.9 Alzheimer's disease, unspecified; F02.80 Dementia in other diseases classified elsewhere, unspecified severity, without behavioral disturbance, psychotic disturbance, mood disturbance, and anxiety; E11.65 Type 2 diabetes mellitus with hyperglycemia; I73.9 Peripheral vascular disease, unspecified